=== PATIENT | male | born 1960 | race Caucasian/White ===

== ENCOUNTER 2020-03-10 09:42 | Outpatient (REF) | payer OTHER, SELFPAY ==
[2020-03-10 10:06] LABS: MANUAL DIFF FLAG NO
[2020-03-10 10:21] LABS: Basophils Percent Auto 0.5 % (0-2); Eosinophils Absolute Auto 0.1 X10*3/uL (0.0-0.4); Eosinophils Percent Auto 1.2 % (0-4); Hemoglobin 15.2 g/dl (14.0-18.0); Imm Gran Abs Auto 0.02 X10*3/uL (0.00-0.03); Imm Gran Pct Auto 0.3 % (0.0-0.4); Lymphocytes Absolute Auto 1.3 X10*3/uL (1.2-4.9); Lymphocytes Percent Auto 19.7 % (20-40); Mean Corpuscular HGB Conc 34.5 g/dl (31.0-36.0); Mean Corpuscular Hemoglobin 32.8 pg (27.0-33.0); Mean Corpuscular Volume 94.8 fL (80-98); Mean Platelet Volume 9.3 fL (9.4-12.4); Monocytes Absolute Auto 0.7 X10*3/uL (0.1-1.2); Monocytes Percent Auto 9.8 % (2-11); Neutrophils Absolute Auto 4.6 X10*3/uL (2.0-8.3); Neutrophils Percent Auto 68.5 % (45-73); Platelet Count 225 X10*3/uL (160-400); Red Blood Count 4.64 X10*6/uL (4.60-5.80); Red Cell Distribution Width 11.7 % (11.0-16.0); White Blood Count 6.7 X10*3/uL (4.8-10.8)
[2020-03-10 10:43] LABS: Alanine Aminotransferase 18 U/L (0-40); Albumin Level 4.6 g/dL (3.5-5.0); Alkaline Phosphatase 67 U/L (39-117); Anion Gap 12 (12-20); Aspartate Amino Transferase 17 U/L (5-37); Bilirubin Total 0.3 mg/dL (0.0-1.0); Blood Urea Nitrogen 18 mg/dL (9-16); Calcium 8.6 mg/dL (8.4-10.2); Carbon Dioxide 26 mmol/L (22-29); Chloride 103 mmol/L (96-108); Cholesterol 160 mg/dL; Estimated Glomerular Filt Rate > 60; Glucose Fasting 114 mg/dL (60-99); HDL Cholesterol 50 mg/dL; LDL Cholesterol Calculated 100 mg/dl; Potassium 4.3 mmol/l (3.3-5.1); Sodium 137 mmol/L (135-145); Total Protein 6.8 g/dL (6.5-8.0); Triglycerides 52 mg/dL
[2020-03-10 10:59] LABS: Glucose Urine UA NEG (NEG); Leukocyte Esterase Urine NEG (NEG); Nitrite Urine NEG (NEG); Urine Blood NEG (NEG); Urine Ketones NEG (NEG); Urine Protein NEG (NEG-TRACE)
[2020-03-10 11:06] LABS: Prostate Specific Antigen Scr 1.24 ng/mL (<0.05-4.0)
[2020-03-10 11:07] LABS: Appearance Urine CLEAR; Color Urine YELLOW
== END 2020-03-10 09:43 | disposition home or self-care (01) ==
LOC: HO.10HDL 09:42
PROVIDERS: Visit Provider Internal Medicine
DX: Z00.00 Encounter for general adult medical examination without abnormal findings (principal); Z12.5 Encounter for screening for malignant neoplasm of prostate
CPT/HCPCS: 36415; 80053; 80061; 81003; 84153; 85025

== ENCOUNTER 2020-03-17 14:51 | Outpatient (REF) | payer OTHER, SELFPAY | END 2020-03-17 14:52 | disposition home or self-care (01) | LOC: HO.LNP 14:51 | PROVIDERS: Visit Provider Internal Medicine | DX: Z20.828 Contact with and (suspected) exposure to other viral communicable diseases (principal); M79.10 Myalgia, unspecified site | CPT/HCPCS: U0003 ==

== ENCOUNTER 2020-04-10 14:50 | Outpatient (REF) | payer OTHER, SELFPAY | END 2020-04-10 14:51 | disposition home or self-care (01) | LOC: HO.LAB 14:50 | PROVIDERS: PCP Internal Medicine; Visit Provider Internal Medicine | DX: Z01.84 Encounter for antibody response examination (principal) | CPT/HCPCS: 86787 ==

== ENCOUNTER 2020-08-08 11:35 | Outpatient (REF) | payer OTHER, SELFPAY ==
--- NOTE | ~2020-08-08 | XR_ITS ---
EXAMINATION: XR CHEST XR ABDOMEN CLINICAL INFORMATION: Abdominal pain and chest pain. COMPARISON: Abdomen 12/06/2011 TECHNIQUE: Chest 2 views. Abdomen 1 view. FINDINGS: CHEST: The lungs are well-expanded and clear. The heart size and pulmonary vascularity is normal. No gross bony abnormality seen. ABDOMEN: There is scattered stool seen throughout the colon without any significant distention. No organomegaly. No radiopaque calculi seen in the right upper quadrant or in the kidneys. The kidneys, however, are limited in evaluation. There is mild spondylosis lumbar spine. XR/XR chest 2V IMPRESSION: Unremarkable chest examination. Moderate constipation.
--- NOTE | ~2020-08-08 | XR_ITS ---
EXAMINATION: XR CHEST XR ABDOMEN CLINICAL INFORMATION: Abdominal pain and chest pain. COMPARISON: Abdomen 12/06/2011 TECHNIQUE: Chest 2 views. Abdomen 1 view. FINDINGS: CHEST: The lungs are well-expanded and clear. The heart size and pulmonary vascularity is normal. No gross bony abnormality seen. ABDOMEN: There is scattered stool seen throughout the colon without any significant distention. No organomegaly. No radiopaque calculi seen in the right upper quadrant or in the kidneys. The kidneys, however, are limited in evaluation. There is mild spondylosis lumbar spine. XR/XR KUB IMPRESSION: Unremarkable chest examination. Moderate constipation.
[2020-08-08 12:57] LABS: MANUAL DIFF FLAG NO
[2020-08-08 13:03] LABS: Basophils Percent Auto 0.2 % (0-2); Eosinophils Absolute Auto 0.1 X10*3/uL (0.0-0.4); Eosinophils Percent Auto 0.5 % (0-4); Hematocrit 44.4 % (42-52); Hemoglobin 15.2 g/dl (14.0-18.0); Imm Gran Abs Auto 0.05 X10*3/uL (0.00-0.03); Imm Gran Pct Auto 0.5 % (0.0-0.4); Lymphocytes Absolute Auto 1.6 X10*3/uL (1.2-4.9); Mean Corpuscular HGB Conc 34.2 g/dl (31.0-36.0); Mean Corpuscular Hemoglobin 31.6 pg (27.0-33.0); Mean Corpuscular Volume 92.3 fL (80-98); Mean Platelet Volume 9.4 fL (9.4-12.4); Monocytes Absolute Auto 1.2 X10*3/uL (0.1-1.2); Monocytes Percent Auto 11.1 % (2-11); Neutrophils Absolute Auto 7.8 X10*3/uL (2.0-8.3); Neutrophils Percent Auto 72.7 % (45-73); Platelet Count 250 X10*3/uL (160-400); Red Blood Count 4.81 X10*6/uL (4.60-5.80); Red Cell Distribution Width 11.6 % (11.0-16.0); White Blood Count 10.8 X10*3/uL (4.8-10.8)
[2020-08-08 13:35] LABS: Alanine Aminotransferase 20 U/L (0-40); Albumin Level 4.3 g/dL (3.5-5.0); Alkaline Phosphatase 77 U/L (39-117); Anion Gap 12 (12-20); Aspartate Amino Transferase 13 U/L (5-37); Bilirubin Total 0.7 mg/dL (0.0-1.0); Blood Urea Nitrogen 10 mg/dL (9-16); C Reactive Protein 7.53 mg/dL (< or = 0.50); Calcium 8.9 mg/dL (8.4-10.2); Carbon Dioxide 28 mmol/L (22-29); Chloride 103 mmol/L (96-108); Estimated Glomerular Filt Rate > 60; Glucose Random 93 mg/dL (60-115); Potassium 4.4 mmol/L (3.3-5.1); Sodium 139 mmol/L (135-145); Total Protein 6.6 g/dL (6.5-8.0)
== END 2020-08-08 11:36 | disposition home or self-care (01) ==
LOC: HO.LAB 11:35
PROVIDERS: PCP Internal Medicine; Visit Provider Internal Medicine
DX: R10.9 Unspecified abdominal pain (principal); I10 Essential (primary) hypertension; Z98.890 Other specified postprocedural states
CPT/HCPCS: 36415; 71046; 74018; 80053; 85025; 86140

== ENCOUNTER 2020-09-26 12:42 | Outpatient (REF) | payer OTHER, SELFPAY ==
--- NOTE | ~2020-09-26 | CT_ITS ---
EXAMINATION: CT ABDOMEN AND PELVIS WITHOUT CONTRAST CLINICAL INFORMATION: Generalized abdominal pain COMPARISON: Previous KUB 08/26/[address] of the abdomen and pelvis February 2010 TECHNIQUE: Multidetector volumetric imaging was performed from the superior aspect of the liver through the pubic symphysis. Sagittal and coronal reformatted images were obtained on the technologist's workstation. This CT examination was performed using dose optimization techniques as appropriate, variously including the following: *Automated exposure control *Adjustment of mA and/or kV according to patient size (this includes techniques or standardized protocols for targeted exams where dose is matched to indication/reason for exam; i.e. extremities or head) *Use of iterative reconstruction technique DLP: 447 mGy-cm FINDINGS: LUNG BASES: The visualized lung bases are unremarkable. LIVER, GALLBLADDER, AND BILIARY TREE: The liver is normal in size, shape, and attenuation. No focal hepatic lesion or biliary ductal dilatation is present. The gallbladder is unremarkable with no evidence of radiopaque gallstones, gallbladder wall thickening, or obvious pericholecystic inflammatory changes. PANCREAS: Unremarkable. SPLEEN: Unremarkable. ADRENAL GLANDS: Unremarkable. KIDNEYS AND URETERS: The kidneys are normal in size, shape, and attenuation. No hydronephrosis, hydroureter, or calculi seen. No perinephric stranding. BLADDER: Unremarkable. GASTROINTESTINAL TRACT: There are postsurgical changes to the transverse colon and sigmoid colon with surgical staple lines. There is a large amount of stool seen in the colon and mild dilatation suggestive of severe constipation. The appendix is normal. The small bowel is normal. The stomach is normal. ABDOMINAL WALL: No significant hernia is appreciated. LYMPH NODES: Normal. VASCULAR: There is mild atherosclerotic disease. There is no aneurysm. PELVIC VISCERA: Unremarkable. OSSEOUS STRUCTURES: There is degenerative disc disease at L4-L5 and L5-S1. CT/CT abdomen pelvis wo con IMPRESSION: Postsurgical changes to the transverse and sigmoid colon. Severe constipation.
[2020-09-26] MEDS: Barium Sulfate Oral (Berry) 450 ML ORAL.SUSP 900 ML PO (15:04)
== END 2020-09-26 12:43 | disposition home or self-care (01) ==
LOC: HO.CT 12:42
PROVIDERS: PCP Internal Medicine; Visit Provider Internal Medicine
DX: R10.84 Generalized abdominal pain (principal); K57.30 Diverticulosis of large intestine without perforation or abscess without bleeding; K56.50 Intestinal adhesions [bands], unspecified as to partial versus complete obstruction
CPT/HCPCS: 74176

== ENCOUNTER 2020-11-29 09:29 | Outpatient (REF) | payer OTHER, SELFPAY ==
--- NOTE | ~2020-11-29 | XR_ITS ---
EXAMINATION: XR LUMBOSACRAL SPINE CLINICAL INFORMATION: Back pain. Left-sided sciatica. COMPARISON: Abdomen CT from 09/26/2020. TECHNIQUE: Three views of the lumbosacral spine. 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 There are osteophytes of the thoracic and lumbar spine. The degenerative loss of disc space is mild at L2-L3 and L5-S1, moderate at L3-L4 and severe at L4-L5. No vertebral compression fractures. No evidence of pars interarticularis defect. The sacrum and sacroiliac joints are unremarkable. XR/XR lumbar spine 2-3V IMPRESSION: * No evidence of lumbar compression fracture. No acute findings compared to 09/26/2020. 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 * Degenerative disc disease in the lumbar spine is worst at the L4-L5 level.
== END 2020-11-29 09:30 | disposition home or self-care (01) ==
LOC: HO.XRAY 09:29
PROVIDERS: PCP Internal Medicine; Visit Provider Internal Medicine
DX: M54.42 Lumbago with sciatica, left side (principal)
CPT/HCPCS: 72100

== ENCOUNTER 2021-02-12 14:50 | Outpatient (REF) | payer OTHER, SELFPAY ==
[2021-02-12 15:40] LABS: Anion Gap 15 (12-20); Blood Urea Nitrogen 24 mg/dL (9-16); Calcium 9.9 mg/dL (8.4-10.2); Carbon Dioxide 25 mmol/L (22-29); Chloride 106 mmol/L (96-108); Estimated Glomerular Filt Rate > 60; Glucose Random 103 mg/dL (60-115); Potassium 4.7 mmol/L (3.3-5.1); Sodium 141 mmol/L (135-145)
== END 2021-02-12 14:51 | disposition home or self-care (01) ==
LOC: HO.LAB 14:50
PROVIDERS: PCP Internal Medicine; Visit Provider Internal Medicine
DX: R79.89 Other specified abnormal findings of blood chemistry (principal); I12.9 Hypertensive chronic kidney disease with stage 1 through stage 4 chronic kidney disease, or unspecified chronic kidney disease; N18.9 Chronic kidney disease, unspecified
CPT/HCPCS: 36415; 80048

== ENCOUNTER 2021-08-05 14:10 | Outpatient (REF) | payer OTHER, SELFPAY ==
--- NOTE | ~2021-08-05 | MR_ITS ---
EXAMINATION: MR LUMBAR SPINE WITHOUT CONTRAST CLINICAL INFORMATION: 60-year-old with low back pain with numbness in buttocks and legs and stiffness. DDD on x-rays. Radicular symptoms to both legs. COMPARISON: None TECHNIQUE: MRI of the lumbar spine was obtained using routine sequences without contrast. FINDINGS: Coronal Alignment: Slight mid lumbar levocurvature noted. Sagittal Alignment: Trace retrolisthesis at L3-L4 noted. Lumbar lordotic curvature is maintained. No anterior spondylolisthesis or spondylolysis. Lumbosacral Junction: Normal. Vertebral Bodies: Vertebral body heights are well maintained. Disc Spaces and Endplates: Vtcdkyvb-ao-smdnrh disc space height loss at L4-L5 with intradiscal degenerative signal changes, Schmorl's nodes and anterolateral spondylosis. Moderate disc space height loss at L3-L4 with disc desiccation and minor spondylosis. Mild disc space height loss, disc desiccation and mild spondylosis at L2-L3. Wypr-el-gdtgtijp disc space height loss and disc desiccation at L5-S1. Htmr-or-dqeyauhu disc space height loss, disc desiccation and mild spondylosis at T12-L1. Spinal Canal: Epidural lipomatosis is noted throughout the lumbar canal, with short pedicles consistent with developmental lumbar spinal canal stenosis, caudal to the L3 level. Bone Marrow: No significant marrow-replacing process or unusual bone marrow edema. Type I degenerative marrow signal changes are seen along the endplates at L4-L5. Conus Medullaris: Terminates at L1. Morphology and signal is normal. Intradural Nerve Roots: There is crowding of the intradural nerve roots between L3-L4 and L5-S1 inclusive. L5-S1: Mild disc bulging is noted with minimal encroachment on the ventral thecal sac. There is severe left-sided and pdqe-nl-licdtsbn right-sided facet arthropathy, with mild central spinal canal stenosis. There is mild right subarticular recess stenosis. Mild right-sided neural foraminal stenosis is noted without neural impingement. L4-L5: Diffuse disc bulging is noted with a superimposed central to left central extruded disc herniation with slight caudal migration, with mass effect on the ventral dural sac, prominent dorsal epidural fat pad, ligamentum flavum thickening, and severe bilateral facet arthrosis. There is severe central spinal canal stenosis with marked crowding of the intradural nerve roots, and there is bilateral subarticular and lateral recess stenosis with encroachment on the traversing L5 nerve roots bilaterally. There is lkvalgmb-td-isaklc bilateral neural foraminal stenosis, right more than left, with encroachment on the exiting L4 nerve roots bilaterally. L3-L4: Diffuse disc bulging is noted with a superimposed central extruded disc herniation with slight caudal migration, with flattening of the ventral dural sac. There is moderate left-sided and severe right-sided facet arthrosis with ligamentum flavum thickening and a prominent dorsal epidural fat pad with moderate central spinal canal stenosis and crowding of the intradural nerve roots. There is moderate left-sided and mild right-sided neural foraminal stenosis, with disc bulging encroaching on the exiting left L3 nerve root. L2-L3: Diffuse disc bulging is noted, with fyvr-bs-rgjjlzmr flattening of the ventral thecal sac with a prominent dorsal epidural fat pad. Hksw-wz-rqpeozas central spinal canal stenosis is noted without significant lateral recess stenosis. There is a severe right-sided facet arthropathy with mild right-sided neural foraminal stenosis without neural impingement. L1-L2: Normal disc contour. No significant facet arthrosis, canal or neural foraminal stenosis. Mild disc bulging at T12-L1 with a superimposed small right subarticular disc herniation. Moderate bilateral facet arthropathy at this level noted with moderate bilateral neural foraminal stenosis. There is partially imaged facet arthropathy bilaterally at T10-T11. Paraspinal/Retroperitoneal: The paravertebral soft tissues are unremarkable. MR/MR lumbar spine wo con IMPRESSION: 1. Slight mid lumbar levocurvature noted with trace retrolisthesis at L3-L4. Multilevel discogenic degenerative changes and spondylosis, as described above, with underlying diffuse epidural lipomatosis and short pedicles. 2. Multilevel disc bulging and central disc herniations with multilevel bilateral facet arthropathy. Severe spinal canal stenosis at L4-L5, moderate spinal canal stenosis at L3-L4 and jnwc-lh-tgthojen spinal canal stenosis at L2-L3 with multilevel crowding of the intradural nerve roots, with bilateral lateral recess stenosis at L4-L5 and on the right at L5-S1. 3. Multilevel bilateral neural foraminal stenosis, most apparent at L4-L5 bilaterally with encroachment on the exiting L4 nerve roots.
--- NOTE | ~2021-08-05 | XR_ITS ---
EXAMINATION: PRE-MRI ORBITS. CLINICAL INFORMATION: History of foreign body in the orbits COMPARISON: None TECHNIQUE: 3 views. FINDINGS: There is no radiopaque foreign body seen in the orbits. The paranasal sinuses and mastoid air cells are well-aerated with mild mucoperiosteal thickening left maxillary sinus. The maxillofacial bones are unremarkable. XR/XR pre mri screening IMPRESSION: No radiopaque foreign body seen in the orbits. Mild mucoperiosteal thickening left maxillary sinus.
== END 2021-08-05 14:11 | disposition home or self-care (01) ==
LOC: HO.MRI 14:10
PROVIDERS: Visit Provider Internal Medicine
DX: M54.59 Other low back pain (principal); M51.36 Other intervertebral disc degeneration, lumbar region
CPT/HCPCS: 72148